=== PATIENT | male | born 1980 | race Two or more races ===

== ENCOUNTER 2020-09-24 05:23 | Inpatient (IN) | payer MEDICAID, OTHER ==
[~2020-09-24] VITALS: Ht 188 cm; Wt 112.7 kg
[2020-09-24] MEDS ORDERED: META28.32 PO (06:04)
[2020-09-24] MEDS ORDERED: MAALOX 30 ML SUSP *UDC PO PRN (06:40)
[2020-09-24] MEDS ORDERED: ACETAMINOPHEN TAB 650MG DOSE (2X325MG) PO PRN (06:40)
[2020-09-24 08:03] VITALS: BP 139/85
[2020-09-24] MEDS ORDERED: LORazepam 2 MG TAB PO PRN (13:05)
[2020-09-24] MEDS: THIAMINE 100 MG TAB PO SCH ×2 (13:54→20:39)
[2020-09-24] MEDS: MULTIVITAMINS/MINERALS THERAP 1 TAB PO SCH (13:54)
[2020-09-24] MEDS: FOLIC ACID 1 MG TAB PO SCH (13:54)
[2020-09-24] MEDS: FLUoxetine 20 MG CAP PO SCH (15:33)
[2020-09-24 17:02] VITALS: BP 136/72
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
[2020-09-24] MEDS: hydrOXYzine 50 MG TAB PO PRN (17:54)
[2020-09-24 18:22] VITALS: BP 136/72
[2020-09-24] MEDS: traZODone 50 MG TAB PO PRN (20:39)
[2020-09-24] MEDS: METAMUCIL (PSYLLIUM) PACKET PO SCH (21:35)
[2020-09-24 22:00] VITALS: BP 137/88
[2020-09-25 06:28] VITALS: BP 138/90
[2020-09-25 07:58] VITALS: BP 126/88
[2020-09-25] MEDS: THIAMINE 100 MG TAB PO SCH ×2 (08:50→20:39)
[2020-09-25] MEDS: MULTIVITAMINS/MINERALS THERAP 1 TAB PO SCH (08:50)
[2020-09-25] MEDS: FLUoxetine 20 MG CAP PO SCH (08:50)
[2020-09-25] MEDS: FOLIC ACID 1 MG TAB PO SCH (08:50)
[2020-09-25] MEDS: hydrOXYzine 50 MG TAB PO PRN (08:51)
--- NOTE | 2020-09-25 09:52 | MHIPNPDOC ---
[facility] Progress Note Progress Note DATE OF SERVICE: 09/25/20 HISTORY: Patient is a 39 -year-old Single, Unemployed, Undomiciled, male, who had lacerated his left arm in a suicide attempt. . Currently his arm is bandaged. He reports unknown amount of sutures of his left arm. States he cut himself vertically yesterday about 7 PM. Patient has a long history of an undiagnosed digestive tract problem. He's had many colonoscopies, states he is not diagnosed with Crohn's or irritable bowel syndrome. His gastrointestinal doctor says, to not be stressed but this causes more stress. He reports that he is has 16 years of this issue where he has flareups in. He has an unusual odor, reports other symptoms of both diarrhea, constipation and abdominal pain. This problem alienates him from friends and family. Reports poor supports and passive aggressive behaviors from his family and friends. Patient has a history of diverticulitis and polyps PER ED REPORT: Pt was transferred to [facility] ED from [facility] following a suicide attempt. Pt was medically cleared at [facility] & transferred to [facility] for a MHE. Pt states that he cut his wrist with a knife as a suicide attempt. Pt states that he has a "digestive tract problems" that has been ongoing for about 16 years, but he is not sure what his dx is. He states that his PCP just tells him to not worry so much. Pt states that this digestive tract issue makes him smell, so he is "alienated from everyone" because he smells bad. Pt denies any Hx of suicide attempts or self- harm. He denies HI. Pt denies both AH & VH. He does not appear to be psychotic. Pt c/o depressed mood, anxiety, poor concentration, decreased energy levels, & poor sleep. Pt denies any Hx of mental health problems. He denies any Hx of admissions. He does not have OP [place]. Pt reports that he drinks a 12- pack of beer every other day. He reports daily MJ use, but has not used in about a week because he does not have access to it. His tox screen was positive for cannabis. Pt states that he was living alone in [place], [place] until about a week ago when he came to the area to live in the [facility]. Pt states that he was having a hard time functioning in the [facility]. He states that he has family in the area but he does not want them to know that he is here because "they are passive-aggressive about my illness." Pt provides only minimal answers to questions & is guarded. VITAL SIGNS: See below. NEW TEST RESULTS: see below CURRENT MEDICATIONS: See below. MENTAL STATUS EXAMINATION: Patient is a 39 -year-old Single, Unemployed, Undomiciled, male, who had lacerated his left arm in a suicide attempt. . Currently his arm is bandaged. He reports unknown amount of sutures of his left arm. Speech: Is fluid, conversant, normal rate, tone and volume Language skills are intact Thought processes including: linear and goal oriented Thought content: reports continued depression and anxiety. Denies current suicidal/homicidal ideation, planning or intent. But suicidality has been fleeting for many years Abstract reasoning, and computation: fair Description of associations: denies, none observed Description of abnormal or psychotic thoughts: denies, none observed. Judgment: fair Insight: fair Orientation: alert and oriented to person, place, time and situation Recent and remote memory: intact Attention span and concentration: good Language: expansive Fund of knowledge: average Mood: Depressed Mood Affect: Flat/Anxious DIAGNOSES: Major Depressive Single Episode, Severe Status Post Suicide Attempt by Laceration Generalized Anxiety Disorder Rule out Bipolar I Disorder Alcohol Use Disorder Cannabis Use Disorder ASSESSMENT: Patient deports that he slept well with Trazodone. Does not feel that Prozac is helping, reinforced with patient that he had one dose and would need to continue this for many weeks before the full benefits can be felt. Patient reports that he is paranoid on the unit, believing that people are laughing at him, talking about him, that they don't want to around him because of his odor. Patient encouraged to keep a food journal, provider will give patient a notebook. 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 He requested a print of "[place] [email or web address]" He talked about interpersonal conflicts with his mother and sister and states that he has lost jobs because of his digestive issues. He requested a medication for his flare up. Encouraged patient to be seen by Gastrointestinal Provider. He remains depressed and very anxious and quite nervous/paranoid of people. MANAGEMENT PLAN: Continue medications, patient started Prozac 20 mg yesterday. Will start Risperdal 1 mg HS for paranoid thoughts, Probiotic ordered 1 capsule BID with meals. TIME SPENT: 40 minutes. Vital Signs Vital Signs Date Time Temp Pulse Resp B/P (MAP) Pulse Ox O2 Delivery O2 Flow Rate FiO2 09/25/20 07:58 70 126/88 09/25/20 06:28 97.6 18 98 Room Air Current Medications Current Medications Medications (Trade) Dose Ordered Sig/Brett Route PRN Reason Start Time Stop Time Status Last Admin Dose Admin Acetaminophen (Tylenol Tab) 650 mg Q6HP PRN PO HEADACHE or DISCOMFORT 09/24/20 06:40 Al Hydrox/Mg Hydrox/Simethicone (Mylanta) 30 ml Q4HP PRN PO HEARTBURN/INDIGESTION 09/24/20 06:40 Fluoxetine HCl (PROzac) 20 mg DAILY PO 09/24/20 09:00 09/25/20 08:50 Folic Acid (Folic Acid) 1 mg DAILY PO 09/24/20 09:00 09/25/20 08:50 Home Med (Med Rec Complete!) ASDIRECTED XX 09/24/20 06:05 09/24/20 06:15 DC Hydroxyzine HCl (Atarax) 50 mg Q6HP PRN PO anxiety/agitation 09/24/20 17:50 09/25/20 08:51 Lactobacillus Acidophilus (Bacid) 1 ea BIDWM PO 09/25/20 18:00 UNV Lorazepam (Ativan) 2 mg ASDIRECTED PRN PO SEE PROTOCOL 09/24/20 13:05 Magnesium Hydroxide (Milk Of Magnesia) 30 ml DAILYPRN PRN PO CONSTIPATION 09/24/20 06:40 Multivitamins (Theragram-M) 1 tab DAILY PO 09/24/20 09:00 09/25/20 08:50 Psyllium Hydrophilic Mucilloid (Metamucil) 1 pkt QHS PO 09/24/20 21:35 Risperidone (RisperDAL) 1 mg QHS PO 09/25/20 21:00 Thiamine HCl (Thiamine HCl) 100 mg BID PO 09/24/20 09:00 09/27/20 08:59 09/25/20 08:50 Trazodone HCl (Desyrel) 50 mg QHSP PRN PO INSOMNIA 09/24/20 06:40 09/24/20 20:39 Allergies Coded Allergies: No Known Allergies (Unverified , 09/24/20) DIEGO NARVAEZ NP Sep 25, 2020 09:52
--- NOTE | 2020-09-25 11:45 | HPEPDOC ---
[facility] Medical History & Physical Date of Admission Sep 25, 2020 Date of Service: Sep 25, 2020 History and Physical CHIEF COMPLAINT:Diarrhea for years. "stress has taken over my life." HISTORY OF PRESENT ILLNESS: 39-year-old black male with chronic diarrhea for 16 years, evaluated by art studio teacher with colonoscopy, colonic polyps, diverticulitis, no history of IBD or celiac sprue, Bacterial overgrowth or IBS admitted to the inpatient mental health unit due to severe depression. Patient denies any weight loss despite complaints of chronic diarrhea 3-4x/day "when I'm around people who gis administrator me," without nausea, vomiting, fever, chills, abdominal pain. Patient denies bright red blood per rectum, melena, black tarry stools, joint pains, mouth ulcers, recent travel, weight loss, hematemesis, coffee-ground emesis, dysphagia, odynophagia, palpitations, lightheadedness, dizziness, peptic ulcer disease, reflux, or prior history of hyperthyroidism gastrinoma VIP Lynsey or pheochromocytoma. He denies any sorbitol use or lactose intolerance, and denies drinking well water or nocturnal diarrhea symptoms. PAST MEDICAL HISTORY: Depression, Diverticulitis, colonic polyps PAST SURGICAL HISTORY: Colonoscopy in [place] SOCIAL HISTORY: One sixpack of beer every other day. Denies cigarette use but smokes and grows marijuana at home. 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 Currently unemployed FAMILY HISTORY: Mother and sister "emotional cripple" Father in 1989 with multiple sclerosis ALLERGIES: Please see below. REVIEW OF SYSTEMS: 10 point review of systems negative aside from positive findings in HPI HOME MEDICATIONS: Please see below. PHYSICAL EXAMINATION: VITAL SIGNS: See below GENERAL APPEARANCE: No distress HEENT: No pallor, icterus extra muscles intact. Moist mucous membranes. No JVD, thyromegaly or cervical lymphadenopathy CARDIOVASCULAR: S1, S2, sinus rhythm LUNGS: Clear to auscultation wheezing or rales. ABDOMEN: Soft nontender nondistended positive bowel sounds. No rebound or guarding EXTREMITIES: No cyanosis, clubbing, pitting edema. LABORATORY DATA: See below. MICROBIOLOGY: Please see below. ASSESSMENT: 39-year-old black male with chronic diarrhea for 16 years, evaluated by art studio teacher with colonoscopy, colonic polyps, diverticulitis, no history of IBD or celiac sprue, Bacterial overgrowth or IBS admitted to the inpatient mental health unit due to severe depression. Patient denies any weight loss despite complaints of chronic diarrhea 3-4x/day "when I'm around people who gis administrator me," without nausea, vomiting, fever, chills, abdominal pain. Patient denies bright red blood per rectum, melena, black tarry stools, joint pains, mouth ulcers, recent travel, weight loss, hematemesis, coffee-ground emesis, dysphagia, odynophagia, palpitations, lightheadedness, dizziness, peptic ulcer disease, reflux, or prior history of hyperthyroidism gastrinoma VIP Lynsey or pheochromocytoma. He denies any sorbitol use or lactose intolerance, and denies drinking well water or nocturnal diarrhea symptoms. Depression Chronic diarrhea Plan: Patient does not exhibit any worrisome symptoms from his chronic diarrhea and does not require any further follow-up. Check for electrolyte abnormalities. Metabolic acidosis. Otherwise, he is requesting his MiraLAX to be given daily at bedtime as recommended by his [place] art studio teacher. Hospitalists will sign off. Please call [facility] at [phone] for re-consultation for any new acute issues. Vital Signs Vital Signs Date Time Temp Pulse Resp B/P (MAP) Pulse Ox O2 Delivery O2 Flow Rate FiO2 09/25/20 07:58 70 126/88 09/25/20 06:28 97.6 18 98 Room Air Home Medications Scheduled Psyllium Husk (with Sugar) (Metamucil Powder) 575 Gm Powder, 3 TBS PO QHS Allergies Coded Allergies: No Known Allergies (Unverified , 09/24/20) A-FIB/CHADSVASC A-FIB History Current/History of A-Fib/PAF?: No Current PO Anticoag Therapy: No Age/Risk Factor Scoring CHADSVASC: CHADSVASC Response (Comments) Value Age Risk Factor Age < 65 years old 0 Gender Risk Factor Male 0 Hx of CHF No 0 Hx of HTN No 0 Hx of Stroke/TIA/or VTE No 0 Hx of Diabetes No 0 Hx of Vascular Disease No 0 Total 0 Treatment Treatment ordered: NONE ESTEFANÍA SOTO MD Sep 25, 2020 11:44
[2020-09-25 16:10] VITALS: BP 135/80
[2020-09-25] MEDS: LACTOBACILLUS ACIDOPHILUS CAP (BACID) PO SCH (17:45)
[2020-09-25] MEDS: risperiDONE 1 MG TAB PO SCH (20:39)
[2020-09-25] MEDS: METAMUCIL (PSYLLIUM) PACKET PO SCH (20:39)
[2020-09-26 07:31] VITALS: BP 146/86
[2020-09-26] MEDS: LACTOBACILLUS ACIDOPHILUS CAP (BACID) PO SCH ×2 (07:55→21:06)
[2020-09-26] MEDS: THIAMINE 100 MG TAB PO SCH ×2 (07:55→21:06)
[2020-09-26] MEDS: MULTIVITAMINS/MINERALS THERAP 1 TAB PO SCH (07:55)
[2020-09-26] MEDS: FLUoxetine 20 MG CAP PO SCH (07:55)
[2020-09-26] MEDS: FOLIC ACID 1 MG TAB PO SCH (07:55)
[2020-09-26] MEDS: hydrOXYzine 50 MG TAB PO PRN (08:55)
[2020-09-26] MEDS: MOM 30ML SUSPENSION UDC PO PRN (11:29)
[2020-09-26] MEDS: LORazepam 1 MG TAB PO PRN (12:48)
--- NOTE | 2020-09-26 17:38 | MHIPNPDOC ---
[facility] Progress Note Progress Note DATE OF SERVICE: 09/26/20 HISTORY: Patient is a 39 -year-old Single, Unemployed, Undomiciled, male, who had lacerated his left arm in a suicide attempt. . Currently his arm is bandaged. He reports unknown amount of sutures of his left arm. States he cut himself vertically yesterday about 7 PM. Patient has a long history of an undiagnosed digestive tract problem. He's had many colonoscopies, states he is not diagnosed with Crohn's or irritable bowel syndrome. His gastrointestinal doctor says, to not be stressed but this causes more stress. He reports that he is has 16 years of this issue where he has flareups in. He has an unusual odor, reports other symptoms of both diarrhea, constipation and abdominal pain. This problem alienates him from friends and family. Reports poor supports and passive aggressive behaviors from his family and friends. Patient has a history of diverticulitis and polyps PER ED REPORT: Pt was transferred to [facility] ED from [facility] following a suicide attempt. Pt was medically cleared at [facility] & transferred to [facility] for a MHE. Pt states that he cut his wrist with a knife as a suicide attempt. Pt states that he has a "digestive tract problems" that has been ongoing for about 16 years, but he is not sure what his dx is. He states that his PCP just tells him to not worry so much. Pt states that this digestive tract issue makes him smell, so he is "alienated from everyone" because he smells bad. Pt denies any Hx of suicide attempts or self- harm. He denies HI. Pt denies both AH & VH. He does not appear to be psychotic. Pt c/o depressed mood, anxiety, poor concentration, decreased energy levels, & poor sleep. Pt denies any Hx of mental health problems. He denies any Hx of admissions. He does not have OP [place]. Pt reports that he drinks a 12- pack of beer every other day. He reports daily MJ use, but has not used in about a week because he does not have access to it. His tox screen was positive for cannabis. Pt states that he was living alone in [place], [place] until about a week ago when he came to the area to live in the [facility]. Pt states that he was having a hard time functioning in the [facility]. He states that he has family in the area but he does not want them to know that he is here because "they are passive-aggressive about my illness." Pt provides only minimal answers to questions & is guarded. VITAL SIGNS: See below. NEW TEST RESULTS: see below CURRENT MEDICATIONS: See below. MENTAL STATUS EXAMINATION: Patient is a 39 -year-old Single, Unemployed, Undomiciled, male, who had lacerated his left arm in a suicide attempt. . Currently his arm is bandaged. He reports unknown amount of sutures of his left arm. Speech: Is not spontaneous, needs prompting, normal tone and volume Language skills are intact Thought processes including: linear but not necessarily coherent Thought content: Denies SI/HI, but reports ongoing SI and depression that he blames on "problems with his GI tract". He has paranoid ideation Abstract reasoning, and computation: fair Description of associations: denies, none observed Description of abnormal or psychotic thoughts: denies, none observed. Judgment: poor Insight: poor Orientation: alert and oriented to person, place, time and situation Recent and remote memory: fair Attention span and concentration: fair Language: adequate Fund of knowledge: average Mood: Depressed/guarded --- Mood Affect: congruent with mood, irritable DIAGNOSES: Major Depressive Single Episode, Severe Status Post Suicide Attempt by Laceration Generalized Anxiety Disorder Rule out Bipolar I Disorder Alcohol Use Disorder Cannabis Use Disorder ASSESSMENT: Patient looks depressed and after I asked him what was the reason of him being admitted, he told me he wanted to be discharged, because nobody likes him here. He then told me that he has chronic problems with his GI tract and that people don't want to be around him because he smells. he said he was upset at staff and patient for them laughing at him. he tells me he doesn't want to be here, just wants to leav and I explained i can't discharge him now, that I fel he needs to continue his hospitalization and that I suggest him address how he feels during weekdays because I do not discharge patients over the weekends, unless I feel people are very stable. He continues pressing to be discharged and at that moment, I could feel he was escalating, so, I asked him to go to his room and that I would talk to him later. he told me not to even ask him to come to talk to me tomorrow. He was upst but he was upset also when he came to talk to me. I agree with his current provider, ne will benefit from taking Risperdal, he is paranoid. He is also depressed, he will benefit from Fluoxetine that he i already taking. MANAGEMENT PLAN: Continue current treatment plan, will re assess tomorrow. TIME SPENT: 15 minutes. Vital Signs Vital Signs Date Time Temp Pulse Resp B/P (MAP) Pulse Ox O2 Delivery O2 Flow Rate FiO2 09/26/20 07:31 98.2 54 14 146/86 (106) 09/25/20 16:10 98 Room Air Current Medications Current Medications Medications (Trade) Dose Ordered Sig/Brett Route PRN Reason Start Time Stop Time Status Last Admin Dose Admin Acetaminophen (Tylenol Tab) 650 mg Q6HP PRN PO HEADACHE or DISCOMFORT 09/24/20 06:40 Al Hydrox/Mg Hydrox/Simethicone (Mylanta) 30 ml Q4HP PRN PO HEARTBURN/INDIGESTION 09/24/20 06:40 Fluoxetine HCl (PROzac) 20 mg DAILY PO 09/24/20 09:00 09/26/20 07:55 Folic Acid (Folic Acid) 1 mg DAILY PO 09/24/20 09:00 09/26/20 07:55 Home Med (Med Rec Complete!) ASDIRECTED XX 09/24/20 06:05 09/24/20 06:15 DC Hydroxyzine HCl (Atarax) 50 mg Q6HP PRN PO anxiety/agitation 09/24/20 17:50 09/26/20 08:55 Lactobacillus Acidophilus (Bacid) 1 ea BIDWM PO 09/25/20 18:00 09/26/20 07:55 Lorazepam (Ativan) 1 mg TIDP PRN PO ANXIETY 09/26/20 11:15 09/26/20 12:48 Lorazepam (Ativan) 2 mg ASDIRECTED PRN PO SEE PROTOCOL 09/24/20 13:05 Cancel Magnesium Hydroxide (Milk Of Magnesia) 30 ml DAILYPRN PRN PO CONSTIPATION 09/24/20 06:40 09/26/20 11:29 Multivitamins (Theragram-M) 1 tab DAILY PO 09/24/20 09:00 09/26/20 07:55 Psyllium Hydrophilic Mucilloid (Metamucil) 1 pkt QHS PO 09/24/20 21:35 09/25/20 20:39 Risperidone (RisperDAL) 1 mg QHS PO 09/25/20 21:00 09/25/20 20:39 Thiamine HCl (Thiamine HCl) 100 mg BID PO 09/24/20 09:00 09/27/20 08:59 09/26/20 07:55 Trazodone HCl (Desyrel) 50 mg QHSP PRN PO INSOMNIA 09/24/20 06:40 09/24/20 20:39 Allergies Coded Allergies: No Known Allergies (Unverified , 09/24/20) EMILY STEWART MD Sep 26, 2020 15:23
[2020-09-26] MEDS: risperiDONE 1 MG TAB PO SCH (21:06)
[2020-09-26] MEDS: traZODone 50 MG TAB PO PRN (21:06)
[2020-09-26] MEDS: METAMUCIL (PSYLLIUM) PACKET PO SCH (21:06)
--- NOTE | 2020-09-26 21:08 | ECGEPIP ---
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
[2020-09-27] MEDS: LACTOBACILLUS ACIDOPHILUS CAP (BACID) PO SCH ×2 (07:53→17:30)
[2020-09-27] MEDS: FLUoxetine 20 MG CAP PO SCH (07:53)
[2020-09-27] MEDS: FOLIC ACID 1 MG TAB PO SCH (07:53)
[2020-09-27] MEDS: MULTIVITAMINS/MINERALS THERAP 1 TAB PO SCH (07:53)
[2020-09-27] MEDS: LORazepam 1 MG TAB PO PRN ×2 (07:53→17:35)
[2020-09-27] MEDS: hydrOXYzine 50 MG TAB PO PRN ×2 (12:50→21:25)
--- NOTE | 2020-09-27 16:04 | MHIPNPDOC ---
[facility] Progress Note Progress Note DATE OF SERVICE: 09/27/20 HISTORY: Patient is a 39 -year-old Single, Unemployed, Undomiciled, male, who had lacerated his left arm in a suicide attempt. . Currently his arm is bandaged. He reports unknown amount of sutures of his left arm. States he cut himself vertically yesterday about 7 PM. Patient has a long history of an undiagnosed digestive tract problem. He's had many colonoscopies, states he is not diagnosed with Crohn's or irritable bowel syndrome. His gastrointestinal doctor says, to not be stressed but this causes more stress. He reports that he is has 16 years of this issue where he has flareups in. He has an unusual odor, reports other symptoms of both diarrhea, constipation and abdominal pain. This problem alienates him from friends and family. Reports poor supports and passive aggressive behaviors from his family and friends. Patient has a history of diverticulitis and polyps PER ED REPORT: Pt was transferred to [facility] ED from [facility] following a suicide attempt. Pt was medically cleared at [facility] & transferred to [facility] for a MHE. Pt states that he cut his wrist with a knife as a suicide attempt. Pt states that he has a "digestive tract problems" that has been ongoing for about 16 years, but he is not sure what his dx is. He states that his PCP just tells him to not worry so much. Pt states that this digestive tract issue makes him smell, so he is "alienated from everyone" because he smells bad. Pt denies any Hx of suicide attempts or self- harm. He denies HI. Pt denies both AH & VH. He does not appear to be psychotic. Pt c/o depressed mood, anxiety, poor concentration, decreased energy levels, & poor sleep. Pt denies any Hx of mental health problems. He denies any Hx of admissions. He does not have OP [place]. Pt reports that he drinks a 12- pack of beer every other day. He reports daily MJ use, but has not used in about a week because he does not have access to it. His tox screen was positive for cannabis. Pt states that he was living alone in [place], [place] until about a week ago when he came to the area to live in the [facility]. Pt states that he was having a hard time functioning in the [facility]. He states that he has family in the area but he does not want them to know that he is here because "they are passive-aggressive about my illness." Pt provides only minimal answers to questions & is guarded. VITAL SIGNS: See below. NEW TEST RESULTS: see below CURRENT MEDICATIONS: See below. MENTAL STATUS EXAMINATION: Patient is a 39 -year-old Single, Unemployed, Undomiciled, male, who had lacerated his left arm in a suicide attempt. Currently his arm is bandaged. He reports unknown amount of sutures of his left arm. Speech: Is not spontaneous, needs prompting, normal tone and volume Language skills are intact Thought processes including: linear but not necessarily coherent Thought content: Denies SI/HI, but reports ongoing SI and depression that he blames on "problems with his GI tract". He has paranoid ideation Abstract reasoning, and computation: fair Description of associations: denies, none observed Description of abnormal or psychotic thoughts: denies, none observed. Judgment: improving Insight: improving Orientation: alert and oriented to person, place, time and situation Recent and remote memory: fair Attention span and concentration: fair Language: adequate Fund of knowledge: average Mood: anxious ---- Affect: congruent with mood DIAGNOSES: Major Depressive Single Episode, Severe Status Post Suicide Attempt by Laceration Generalized Anxiety Disorder Rule out Bipolar I Disorder Alcohol Use Disorder Cannabis Use Disorder ASSESSMENT: He is on a probiotic two days ago, he is on Metamucil but he has been taking it for about 5 years. He says he has been to [facility], they have removed polyps. He says his GI problems get worse when he is stressed. He says smoking marijuana has helped him. He says he was able to sleep last night, because he had medications for sleep. He says he wouldn't be able to do it because he uses alcohol and MJ to induce sleep. He says he can still smell bad odor, sometimes he doesn't smell it but he says he knows other people can smell it. Hhe says he still feels anxious. MANAGEMENT PLAN: Continue current treatment plan, will re assess tomorrow. TIME SPENT: 15 minutes. Vital Signs Vital Signs Date Time Temp Pulse Resp B/P (MAP) Pulse Ox O2 Delivery O2 Flow Rate FiO2 09/26/20 07:31 98.2 54 14 146/86 (106) 09/25/20 16:10 98 Room Air Current Medications Current Medications Medications (Trade) Dose Ordered Sig/Brett Route PRN Reason Start Time Stop Time Status Last Admin Dose Admin Acetaminophen (Tylenol Tab) 650 mg Q6HP PRN PO HEADACHE or DISCOMFORT 09/24/20 06:40 Al Hydrox/Mg Hydrox/Simethicone (Mylanta) 30 ml Q4HP PRN PO HEARTBURN/INDIGESTION 09/24/20 06:40 Fluoxetine HCl (PROzac) 20 mg DAILY PO 09/24/20 09:00 09/27/20 07:53 Folic Acid (Folic Acid) 1 mg DAILY PO 09/24/20 09:00 09/27/20 07:53 Home Med (Med Rec Complete!) ASDIRECTED XX 09/24/20 06:05 09/24/20 06:15 DC Hydroxyzine HCl (Atarax) 50 mg Q6HP PRN PO anxiety/agitation 09/24/20 17:50 09/27/20 12:50 Lactobacillus Acidophilus (Bacid) 1 ea BIDWM PO 09/25/20 18:00 09/27/20 07:53 Lorazepam (Ativan) 1 mg TIDP PRN PO ANXIETY 09/26/20 11:15 09/27/20 07:53 Lorazepam (Ativan) 2 mg ASDIRECTED PRN PO SEE PROTOCOL 09/24/20 13:05 Cancel Magnesium Hydroxide (Milk Of Magnesia) 30 ml DAILYPRN PRN PO CONSTIPATION 09/24/20 06:40 09/26/20 11:29 Multivitamins (Theragram-M) 1 tab DAILY PO 09/24/20 09:00 09/27/20 07:53 Psyllium Hydrophilic Mucilloid (Metamucil) 1 pkt QHS PO 09/24/20 21:35 09/26/20 21:06 Risperidone (RisperDAL) 1 mg QHS PO 09/25/20 21:00 09/26/20 21:06 Thiamine HCl (Thiamine HCl) 100 mg BID PO 09/24/20 09:00 09/27/20 08:59 DC 09/26/20 21:06 Trazodone HCl (Desyrel) 50 mg QHSP PRN PO INSOMNIA 09/24/20 06:40 09/26/20 21:06 Allergies Coded Allergies: No Known Allergies (Unverified , 09/24/20) EMILY STEWART MD Sep 27, 2020 16:04
[2020-09-27 17:01] VITALS: BP 145/90
[2020-09-27] MEDS: traZODone 50 MG TAB PO PRN (21:24)
[2020-09-27] MEDS: risperiDONE 1 MG TAB PO SCH (21:25)
[2020-09-27] MEDS: METAMUCIL (PSYLLIUM) PACKET PO SCH (21:25)
[2020-09-28] MEDS: hydrOXYzine 50 MG TAB PO PRN (08:34)
[2020-09-28] MEDS: LACTOBACILLUS ACIDOPHILUS CAP (BACID) PO SCH ×2 (08:34→17:54)
[2020-09-28] MEDS: FOLIC ACID 1 MG TAB PO SCH (08:34)
[2020-09-28] MEDS: FLUoxetine 20 MG CAP PO SCH (08:34)
[2020-09-28] MEDS: MULTIVITAMINS/MINERALS THERAP 1 TAB PO SCH (08:34)
[2020-09-28] MEDS ORDERED: OLANZapine ORAL DISINTEGRATING TAB 5MG PO STA (13:33)
--- NOTE | 2020-09-28 14:31 | MHIPNPDOC ---
[facility] Progress Note Progress Note DATE OF SERVICE: 09/28/20 HISTORY: Patient is a 39 -year-old Single, Unemployed, Undomiciled, male, who had lacerated his left arm in a suicide attempt. . Currently his arm is bandaged. He reports unknown amount of sutures of his left arm. States he cut himself vertically yesterday about 7 PM. Patient has a long history of an undiagnosed digestive tract problem. He's had many colonoscopies, states he is not diagnosed with Crohn's or irritable bowel syndrome. His gastrointestinal doctor says, to not be stressed but this causes more stress. He reports that he is has 16 years of this issue where he has flareups in. He has an unusual odor, reports other symptoms of both diarrhea, constipation and abdominal pain. This problem alienates him from friends and family. Reports poor supports and passive aggressive behaviors from his family and friends. Patient has a history of diverticulitis and polyps PER ED REPORT: Pt was transferred to [facility] ED from [facility] following a suicide attempt. Pt was medically cleared at [facility] & transferred to [facility] for a MHE. Pt states that he cut his wrist with a knife as a suicide attempt. Pt states that he has a "digestive tract problems" that has been ongoing for about 16 years, but he is not sure what his dx is. He states that his PCP just tells him to not worry so much. Pt states that this digestive tract issue makes him smell, so he is "alienated from everyone" because he smells bad. Pt denies any Hx of suicide attempts or self- harm. He denies HI. Pt denies both AH & VH. He does not appear to be psychotic. Pt c/o depressed mood, anxiety, poor concentration, decreased energy levels, & poor sleep. Pt denies any Hx of mental health problems. He denies any Hx of admissions. He does not have OP [place]. Pt reports that he drinks a 12- pack of beer every other day. He reports daily MJ use, but has not used in about a week because he does not have access to it. His tox screen was positive for cannabis. Pt states that he was living alone in [place], [place] until about a week ago when he came to the area to live in the [facility]. Pt states that he was having a hard time functioning in the [facility]. He states that he has family in the area but he does not want them to know that he is here because "they are passive-aggressive about my illness." Pt provides only minimal answers to questions & is guarded. VITAL SIGNS: See below. NEW TEST RESULTS: see below CURRENT MEDICATIONS: See below. MENTAL STATUS EXAMINATION: Patient is a 39 -year-old Single, Unemployed, Undomiciled, male, who had lacerated his left arm in a suicide attempt. Currently his arm is bandaged. He reports unknown amount of sutures of his left arm. Speech: Is not spontaneous, needs prompting, normal tone and volume Language skills are intact Thought processes including: linear and goal oriented Thought content: Denies SI/HI, denies depression. He has paranoid ideation Abstract reasoning, and computation: fair Description of associations: denies, none observed Description of abnormal or psychotic thoughts: denies, none observed. Judgment: fair Insight: fair Orientation: alert and oriented to person, place, time and situation Recent and remote memory: fair Attention span and concentration: fair Language: adequate Fund of knowledge: average Mood: Denies depression Mood Affect: Irritable, anxious, guarded DIAGNOSES: Major Depressive Single Episode, Severe Status Post Suicide Attempt by Laceration Generalized Anxiety Disorder Rule out Bipolar I Disorder Alcohol Use Disorder Cannabis Use Disorder ASSESSMENT: Patient reports that he has no depression. He complains of anxiety. States that on Monday he had an encounter with a staff member who made an improper comment about him. Patient has been quite paranoid of other staff and peers and may have olfactory hallucinations because he believes that he is odorous and adamant that people are talking about him behind his back and that they are laughing at him. Patient states that he does not think Atarax. Ativan or Prozac works. Risperdal increased to 3 mg for his increasing paranoid thoughts. Patient was quite irritable in the interview. One time order for Zyprexa Zydis ordered. Reinforced that Prozac needs to be continued for 3-6 weeks for full effectiveness, he agreed to take this at . MANAGEMENT PLAN: Continue current treatment plan, will re assess tomorrow. TIME SPENT: 25 minutes. Vital Signs Vital Signs Date Time Temp Pulse Resp B/P (MAP) Pulse Ox O2 Delivery O2 Flow Rate FiO2 09/27/20 17:01 97.0 100 18 145/90 (108) 09/25/20 16:10 98 Room Air Current Medications Current Medications Medications (Trade) Dose Ordered Sig/Brett Route PRN Reason Start Time Stop Time Status Last Admin Dose Admin Acetaminophen (Tylenol Tab) 650 mg Q6HP PRN PO HEADACHE or DISCOMFORT 09/24/20 06:40 Al Hydrox/Mg Hydrox/Simethicone (Mylanta) 30 ml Q4HP PRN PO HEARTBURN/INDIGESTION 09/24/20 06:40 Fluoxetine HCl (PROzac) 20 mg DAILY PO 09/24/20 09:00 09/28/20 08:34 Folic Acid (Folic Acid) 1 mg DAILY PO 09/24/20 09:00 09/28/20 08:34 Home Med (Med Rec Complete!) ASDIRECTED XX 09/24/20 06:05 09/24/20 06:15 DC Hydroxyzine HCl (Atarax) 50 mg Q6HP PRN PO anxiety/agitation 09/24/20 17:50 09/28/20 08:34 Lactobacillus Acidophilus (Bacid) 1 ea BIDWM PO 09/25/20 18:00 09/28/20 08:34 Lorazepam (Ativan) 1 mg TIDP PRN PO ANXIETY 09/26/20 11:15 09/27/20 17:35 Lorazepam (Ativan) 2 mg ASDIRECTED PRN PO SEE PROTOCOL 09/24/20 13:05 Cancel Magnesium Hydroxide (Milk Of Magnesia) 30 ml DAILYPRN PRN PO CONSTIPATION 09/24/20 06:40 09/26/20 11:29 Multivitamins (Theragram-M) 1 tab DAILY PO 09/24/20 09:00 09/28/20 08:34 Psyllium Hydrophilic Mucilloid (Metamucil) 1 pkt QHS PO 09/24/20 21:35 09/27/20 21:25 Risperidone (RisperDAL) 1 mg QHS PO 09/25/20 21:00 09/27/20 21:25 Thiamine HCl (Thiamine HCl) 100 mg BID PO 09/24/20 09:00 09/27/20 08:59 DC 09/26/20 21:06 Trazodone HCl (Desyrel) 50 mg QHSP PRN PO INSOMNIA 09/24/20 06:40 09/27/20 21:24 Allergies Coded Allergies: No Known Allergies (Unverified , 4/15/21) DIEGO NARVAEZ NP Sep 28, 2020 13:28
[2020-09-28 18:02] VITALS: BP 138/78
[2020-09-28] MEDS: risperiDONE 3 MG TAB PO SCH (20:51)
[2020-09-28] MEDS: traZODone 50 MG TAB PO PRN (20:51)
[2020-09-28] MEDS: METAMUCIL (PSYLLIUM) PACKET PO SCH (20:52)
[2020-09-29 06:52] VITALS: BP 140/73
[2020-09-29] MEDS: LACTOBACILLUS ACIDOPHILUS CAP (BACID) PO SCH ×2 (08:52→17:31)
[2020-09-29] MEDS: FOLIC ACID 1 MG TAB PO SCH (09:30)
[2020-09-29] MEDS: MULTIVITAMINS/MINERALS THERAP 1 TAB PO SCH (09:30)
[2020-09-29] MEDS: hydrOXYzine 50 MG TAB PO PRN ×2 (13:16→19:23)
--- NOTE | 2020-09-29 17:24 | MHIPNPDOC ---
[facility] Progress Note Progress Note DATE OF SERVICE: 09/29/20 HISTORY: Patient is a 39 -year-old Single, Unemployed, Undomiciled, male, who had lacerated his left arm in a suicide attempt. . Currently his arm is bandaged. He reports unknown amount of sutures of his left arm. States he cut himself vertically yesterday about 7 PM. Patient has a long history of an undiagnosed digestive tract problem. He's had many colonoscopies, states he is not diagnosed with Crohn's or irritable bowel syndrome. His gastrointestinal doctor says, to not be stressed but this causes more stress. He reports that he is has 16 years of this issue where he has flareups in. He has an unusual odor, reports other symptoms of both diarrhea, constipation and abdominal pain. This problem alienates him from friends and family. Reports poor supports and passive aggressive behaviors from his family and friends. Patient has a history of diverticulitis and polyps PER ED REPORT: Pt was transferred to [facility] ED from [facility] following a suicide attempt. Pt was medically cleared at [facility] & transferred to [facility] for a MHE. Pt states that he cut his wrist with a knife as a suicide attempt. Pt states that he has a "digestive tract problems" that has been ongoing for about 16 years, but he is not sure what his dx is. He states that his PCP just tells him to not worry so much. Pt states that this digestive tract issue makes him smell, so he is "alienated from everyone" because he smells bad. Pt denies any Hx of suicide attempts or self- harm. He denies HI. Pt denies both AH & VH. He does not appear to be psychotic. Pt c/o depressed mood, anxiety, poor concentration, decreased energy levels, & poor sleep. Pt denies any Hx of mental health problems. He denies any Hx of admissions. He does not have OP [place]. Pt reports that he drinks a 12- pack of beer every other day. He reports daily MJ use, but has not used in about a week because he does not have access to it. His tox screen was positive for cannabis. Pt states that he was living alone in [place], [place] until about a week ago when he came to the area to live in the [facility]. Pt states that he was having a hard time functioning in the [facility]. He states that he has family in the area but he does not want them to know that he is here because "they are passive-aggressive about my illness." Pt provides only minimal answers to questions & is guarded. VITAL SIGNS: See below. NEW TEST RESULTS: see below CURRENT MEDICATIONS: See below. MENTAL STATUS EXAMINATION: Patient is a 39 -year-old Single, Unemployed, Undomiciled, male, who had lacerated his left arm in a suicide attempt. Currently his arm is bandaged. He reports unknown amount of sutures of his left arm. Speech: Is not spontaneous, needs prompting, normal tone and volume Language skills are intact Thought processes including: linear and goal oriented Thought content: Denies SI/HI, denies depression. He has paranoid ideation Abstract reasoning, and computation: fair Description of associations: denies, none observed Description of abnormal or psychotic thoughts: denies, none observed. Judgment: fair Insight: fair Orientation: alert and oriented to person, place, time and situation Recent and remote memory: fair Attention span and concentration: fair Language: adequate Fund of knowledge: average Mood: Denies depression Mood Affect: Irritable, anxious, guarded DIAGNOSES: Major Depressive Single Episode, Severe Status Post Suicide Attempt by Laceration Generalized Anxiety Disorder Rule out Bipolar I Disorder Alcohol Use Disorder Cannabis Use Disorder ASSESSMENT: Patient reporting increased anxiety. Has theories about political correctness, methane gas pollution and the end of the world theories. During the interview he is euthymic and smiles on approach but patient's paranoia has increased. He reports that more people are talking about him. When reviewing these thoughts he states that patients' are talking about him, staff are talking behind his back and many times in the interview he is very sensitive to the provider's glances or movements to i.e. rub my nose. Patient stopped his dialogue and stated "What!? Do I have something on my nose? Why are scratching your nose?" Explained to patient that my nose was itchy from the mask and patient accepted this. Patient reported that his anxiety is extremely high. He sought out this provider multiple times during the day to talk about his anxiety. Will be talking to patient about discharge. Patient was given one dose of Zyprexa 5 mg for his severe anxiety yesterday and he stated that his didn't work. He is requesting Alprazolam for his anxiety, reports that he does not have a Rx for this and was never Rx'd it in the past but was given some and he states that it works. Given that patient does not have a provider that already prescribes it and may not have a provider that will continue it, this provider is not inclined to start this. We will continue to collaborate on an agreed non-controlled anxiolytic for his discharge. MANAGEMENT PLAN: Continue current treatment plan, will re assess tomorrow. TIME SPENT: 25 minutes. Vital Signs Vital Signs Date Time Temp Pulse Resp B/P (MAP) Pulse Ox O2 Delivery O2 Flow Rate FiO2 09/29/20 06:52 99.2 59 20 140/73 (95) 100 Room Air Current Medications Current Medications Medications (Trade) Dose Ordered Sig/Brett Route PRN Reason Start Time Stop Time Status Last Admin Dose Admin Acetaminophen (Tylenol Tab) 650 mg Q6HP PRN PO HEADACHE or DISCOMFORT 09/24/20 06:40 Al Hydrox/Mg Hydrox/Simethicone (Mylanta) 30 ml Q4HP PRN PO HEARTBURN/INDIGESTION 09/24/20 06:40 Fluoxetine HCl (PROzac) 20 mg DAILY PO 09/24/20 09:00 09/28/20 13:31 DC 09/28/20 08:34 Fluoxetine HCl (PROzac) 20 mg QHS PO 09/29/20 21:00 Folic Acid (Folic Acid) 1 mg DAILY PO 09/24/20 09:00 09/29/20 09:30 Home Med (Med Rec Complete!) ASDIRECTED XX 09/24/20 06:05 09/24/20 06:15 DC Hydroxyzine HCl (Atarax) 50 mg Q6HP PRN PO anxiety/agitation 09/24/20 17:50 09/28/20 13:36 DC 09/28/20 08:34 Hydroxyzine HCl (Atarax) 100 mg Q6HP PRN PO ANXIETY 09/29/20 12:45 Lactobacillus Acidophilus (Bacid) 1 ea BIDWM PO 09/25/20 18:00 09/29/20 08:52 Lorazepam (Ativan) 1 mg TIDP PRN PO ANXIETY 09/26/20 11:15 09/28/20 13:36 DC 09/27/20 17:35 Lorazepam (Ativan) 2 mg ASDIRECTED PRN PO SEE PROTOCOL 09/24/20 13:05 Cancel Magnesium Hydroxide (Milk Of Magnesia) 30 ml DAILYPRN PRN PO CONSTIPATION 09/24/20 06:40 09/26/20 11:29 Multivitamins (Theragram-M) 1 tab DAILY PO 09/24/20 09:00 09/29/20 09:30 Olanzapine (ZyPREXA ZYDIS) 5 mg STAT STAT PO 09/28/20 13:33 09/28/20 13:36 DC 09/28/20 13:44 Psyllium Hydrophilic Mucilloid (Metamucil) 1 pkt QHS PO 09/24/20 21:35 09/29/20 12:46 DC 09/28/20 20:52 Psyllium Hydrophilic Mucilloid (Metamucil) 2 pkt DAILYPRN PRN PO CONSTIPATION 09/29/20 12:45 Risperidone (RisperDAL) 1 mg QHS PO 09/25/20 21:00 09/28/20 13:31 DC 09/27/20 21:25 Risperidone (RisperDAL) 3 mg QHS PO 09/28/20 21:00 09/28/20 20:51 Thiamine HCl (Thiamine HCl) 100 mg BID PO 09/24/20 09:00 09/27/20 08:59 DC 09/26/20 21:06 Trazodone HCl (Desyrel) 25 mg QHSP PRN PO INSOMNIA 09/29/20 12:45 Trazodone HCl (Desyrel) 50 mg QHSP PRN PO INSOMNIA 09/24/20 06:40 09/29/20 12:46 DC 09/28/20 20:51 Allergies Coded Allergies: No Known Allergies (Unverified , 09/24/20) DIEGO NARVAEZ TEST SKEIN WINDER Sep 29, 2020 13:06
[2020-09-29 18:00] VITALS: BP 139/85
[2020-09-29] MEDS: traZODone 25MG PER 1/2 TABLET PO PRN (20:38)
[2020-09-29] MEDS: risperiDONE 3 MG TAB PO SCH (20:38)
[2020-09-29] MEDS: METAMUCIL (PSYLLIUM) PACKET PO PRN (20:38)
[2020-09-29] MEDS ORDERED: FLUoxetine 20 MG CAP PO SCH (21:00)
[2020-09-30] MEDS: hydrOXYzine 50 MG TAB PO PRN ×2 (05:38→19:40)
[2020-09-30 06:45] VITALS: BP 152/94
[2020-09-30] MEDS: MULTIVITAMINS/MINERALS THERAP 1 TAB PO SCH (08:02)
[2020-09-30] MEDS: LACTOBACILLUS ACIDOPHILUS CAP (BACID) PO SCH ×2 (08:02→17:51)
[2020-09-30] MEDS: FOLIC ACID 1 MG TAB PO SCH (08:02)
[2020-09-30] MEDS ORDERED: LORazepam 1 MG TAB PO STA (09:32)
[2020-09-30] MEDS ORDERED: FLUoxetine 20 MG CAP PO ONE (12:25)
--- NOTE | 2020-09-30 13:43 | MHIPNPDOC ---
[facility] Progress Note Progress Note DATE OF SERVICE: 09/30/20 HISTORY: Patient is a 39 -year-old Single, Unemployed, Undomiciled, male, who had lacerated his left arm in a suicide attempt. . Currently his arm is bandaged. He reports unknown amount of sutures of his left arm. States he cut himself vertically yesterday about 7 PM. Patient has a long history of an undiagnosed digestive tract problem. He's had many colonoscopies, states he is not diagnosed with Crohn's or irritable bowel syndrome. His gastrointestinal doctor says, to not be stressed but this causes more stress. He reports that he is has 16 years of this issue where he has flareups in. He has an unusual odor, reports other symptoms of both diarrhea, constipation and abdominal pain. This problem alienates him from friends and family. Reports poor supports and passive aggressive behaviors from his family and friends. Patient has a history of diverticulitis and polyps PER ED REPORT: Pt was transferred to [facility] ED from [facility] following a suicide attempt. Pt was medically cleared at [facility] & transferred to [facility] for a MHE. Pt states that he cut his wrist with a knife as a suicide attempt. Pt states that he has a "digestive tract problems" that has been ongoing for about 16 years, but he is not sure what his dx is. He states that his PCP just tells him to not worry so much. Pt states that this digestive tract issue makes him smell, so he is "alienated from everyone" because he smells bad. Pt denies any Hx of suicide attempts or self- harm. He denies HI. Pt denies both AH & VH. He does not appear to be psychotic. Pt c/o depressed mood, anxiety, poor concentration, decreased energy levels, & poor sleep. Pt denies any Hx of mental health problems. He denies any Hx of admissions. He does not have OP [place]. Pt reports that he drinks a 12- pack of beer every other day. He reports daily MJ use, but has not used in about a week because he does not have access to it. His tox screen was positive for cannabis. Pt states that he was living alone in [place], [place] until about a week ago when he came to the area to live in the [facility]. Pt states that he was having a hard time functioning in the [facility]. He states that he has family in the area but he does not want them to know that he is here because "they are passive-aggressive about my illness." Pt provides only minimal answers to questions & is guarded. VITAL SIGNS: See below. NEW TEST RESULTS: see below CURRENT MEDICATIONS: See below. MENTAL STATUS EXAMINATION: Patient is a 39 -year-old Single, Unemployed, Undomiciled, male, who had lacerated his left arm in a suicide attempt. Currently his arm is bandaged. He reports unknown amount of sutures of his left arm. Speech: Is not spontaneous, needs prompting, normal tone and volume Language skills are intact Thought processes including: linear and goal oriented Thought content: Denies SI/HI,reports depression and increased anxiety. He has paranoid ideations Abstract reasoning, and computation: fair Description of associations: denies, none observed Description of abnormal or psychotic thoughts: denies, none observed. Judgment: fair Insight: fair Orientation: alert and oriented to person, place, time and situation Recent and remote memory: fair Attention span and concentration: fair Language: adequate Fund of knowledge: average Mood:Reports depression and anxiety Mood Affect: Irritable, anxious DIAGNOSES: Major Depressive Single Episode, Severe Status Post Suicide Attempt by Laceration Generalized Anxiety Disorder Rule out Bipolar I Disorder Alcohol Use Disorder Cannabis Use Disorder ASSESSMENT: Patient attempted to meet with provider multiple times. Several times during this hospitalization patient has wanted med changes from AM to PM, did not want anxiolytics reporting that none were working. He stated today that he would like Ativan reinstated to his medication reconciliation. I reinforced with the patient that he would not be prescribed this at his discharge. He was reporting that his paranoia has increased while he has been hospitalized. He is observed to be more paranoid about his peers and about the staff. He states that a patient expelled flatus while he was in the hallway, "that marry was being just very passive aggressive to me." Patient continues to ruminate about how people are trying to say something about him behind his back, talking to others about him or laughing at him. He is very irritable when he is ruminating about peers. Patient was living in the [facility] and stated that he may consider this upon discharge, given that it is snowing today we are working with the patient to be open to housing. He was agreeable to signing paperwork today. Planning to discharge patient Monday10/05/20. @7305- Patient comes into the office asking for his lorazepam to be switched to every 6hrs. Reinforced with patient that the current lorazepam frequency will stay the same. Patient has med seeking behaviors. MANAGEMENT PLAN: Continue current treatment plan, Ativan 1 mg [id number] PRN for anxiety. Risperdal 3 mg in AM for continued Paranoia. Patient requesting his Prozac to go back to AM. TIME SPENT: 25 minutes. Vital Signs Vital Signs Date Time Temp Pulse Resp B/P (MAP) Pulse Ox O2 Delivery O2 Flow Rate FiO2 09/30/20 06:45 96.6 88 20 152/94 (113) 96 Room Air Current Medications Current Medications Medications (Trade) Dose Ordered Sig/Brett Route PRN Reason Start Time Stop Time Status Last Admin Dose Admin Acetaminophen (Tylenol Tab) 650 mg Q6HP PRN PO HEADACHE or DISCOMFORT 09/24/20 06:40 Al Hydrox/Mg Hydrox/Simethicone (Mylanta) 30 ml Q4HP PRN PO HEARTBURN/INDIGESTION 09/24/20 06:40 Fluoxetine HCl (PROzac) 20 mg DAILY PO 09/24/20 09:00 09/28/20 13:31 DC 09/28/20 08:34 Fluoxetine HCl (PROzac) 20 mg QAM PO 10/01/20 09:00 Fluoxetine HCl (PROzac) 20 mg QHS PO 09/29/20 21:00 09/30/20 12:27 DC 09/29/20 20:38 Folic Acid (Folic Acid) 1 mg DAILY PO 09/24/20 09:00 09/30/20 08:02 Home Med (Med Rec Complete!) ASDIRECTED XX 09/24/20 06:05 09/24/20 06:15 DC Hydroxyzine HCl (Atarax) 50 mg Q6HP PRN PO anxiety/agitation 09/24/20 17:50 09/28/20 13:36 DC 09/28/20 08:34 Hydroxyzine HCl (Atarax) 100 mg Q6HP PRN PO ANXIETY 09/29/20 12:45 09/30/20 05:38 Lactobacillus Acidophilus (Bacid) 1 ea BIDWM PO 09/25/20 18:00 09/30/20 08:02 Lorazepam (Ativan) 1 mg Q8HP PRN PO ANXIETY 09/30/20 12:25 Lorazepam (Ativan) 1 mg STAT STAT PO 09/30/20 09:32 09/30/20 09:34 DC 09/30/20 09:56 Lorazepam (Ativan) 1 mg TIDP PRN PO ANXIETY 09/26/20 11:15 09/28/20 13:36 DC 09/27/20 17:35 Lorazepam (Ativan) 2 mg ASDIRECTED PRN PO SEE PROTOCOL 09/24/20 13:05 Cancel Magnesium Hydroxide (Milk Of Magnesia) 30 ml DAILYPRN PRN PO CONSTIPATION 09/24/20 06:40 09/26/20 11:29 Multivitamins (Theragram-M) 1 tab DAILY PO 09/24/20 09:00 09/30/20 08:02 Olanzapine (ZyPREXA ZYDIS) 5 mg STAT STAT PO 09/28/20 13:33 09/28/20 13:36 DC 09/28/20 13:44 Psyllium Hydrophilic Mucilloid (Metamucil) 1 pkt QHS PO 09/24/20 21:35 09/29/20 12:46 DC 09/28/20 20:52 Psyllium Hydrophilic Mucilloid (Metamucil) 2 pkt DAILYPRN PRN PO CONSTIPATION 09/29/20 12:45 09/29/20 20:38 Risperidone (RisperDAL) 1 mg QHS PO 09/25/20 21:00 09/28/20 13:31 DC 09/27/20 21:25 Risperidone (RisperDAL) 3 mg QAM PO 10/01/20 09:00 Risperidone (RisperDAL) 3 mg QHS PO 09/28/20 21:00 09/29/20 20:38 Thiamine HCl (Thiamine HCl) 100 mg BID PO 09/24/20 09:00 09/27/20 08:59 DC 09/26/20 21:06 Trazodone HCl (Desyrel) 25 mg QHSP PRN PO INSOMNIA 09/29/20 12:45 09/29/20 20:38 Trazodone HCl (Desyrel) 50 mg QHSP PRN PO INSOMNIA 09/24/20 06:40 09/29/20 12:46 DC 09/28/20 20:51 Allergies Coded Allergies: No Known Allergies (Unverified , 09/24/20) DIEGO NARVAEZ NP Sep 30, 2020 13:43
[2020-09-30 17:46] VITALS: BP 142/88
[2020-09-30] MEDS: LORazepam 1 MG TAB PO PRN (18:19)
[2020-09-30] MEDS: risperiDONE 3 MG TAB PO SCH (20:21)
[2020-09-30] MEDS: traZODone 25MG PER 1/2 TABLET PO PRN (20:21)
[2020-09-30] MEDS: METAMUCIL (PSYLLIUM) PACKET PO PRN (20:21)
[2020-10-01 06:45] VITALS: BP 153/72
[2020-10-01] MEDS: LACTOBACILLUS ACIDOPHILUS CAP (BACID) PO SCH ×2 (08:32→17:37)
[2020-10-01] MEDS: MULTIVITAMINS/MINERALS THERAP 1 TAB PO SCH (08:32)
[2020-10-01] MEDS: LORazepam 1 MG TAB PO PRN ×2 (08:32→16:34)
[2020-10-01] MEDS: FOLIC ACID 1 MG TAB PO SCH (08:32)
[2020-10-01] MEDS: FLUoxetine 20 MG CAP PO SCH (08:32)
[2020-10-01] MEDS: risperiDONE 3 MG TAB PO SCH ×2 (08:33→20:10)
[2020-10-01] MEDS: hydrOXYzine 50 MG TAB PO PRN ×2 (12:30→20:10)
--- NOTE | 2020-10-01 15:56 | MHIPNPDOC ---
[facility] Progress Note Progress Note DATE OF SERVICE: 10/01/20 HISTORY: Patient is a 39 -year-old Single, Unemployed, Undomiciled, male, who had lacerated his left arm in a suicide attempt. . Currently his arm is bandaged. He reports unknown amount of sutures of his left arm. States he cut himself vertically yesterday about 7 PM. Patient has a long history of an undiagnosed digestive tract problem. He's had many colonoscopies, states he is not diagnosed with Crohn's or irritable bowel syndrome. His gastrointestinal doctor says, to not be stressed but this causes more stress. He reports that he is has 16 years of this issue where he has flareups in. He has an unusual odor, reports other symptoms of both diarrhea, constipation and abdominal pain. This problem alienates him from friends and family. Reports poor supports and passive aggressive behaviors from his family and friends. Patient has a history of diverticulitis and polyps PER ED REPORT: Pt was transferred to [facility] ED from [facility] following a suicide attempt. Pt was medically cleared at [facility] & transferred to [facility] for a MHE. Pt states that he cut his wrist with a knife as a suicide attempt. Pt states that he has a "digestive tract problems" that has been ongoing for about 16 years, but he is not sure what his dx is. He states that his PCP just tells him to not worry so much. Pt states that this digestive tract issue makes him smell, so he is "alienated from everyone" because he smells bad. Pt denies any Hx of suicide attempts or self- harm. He denies HI. Pt denies both AH & VH. He does not appear to be psychotic. Pt c/o depressed mood, anxiety, poor concentration, decreased energy levels, & poor sleep. Pt denies any Hx of mental health problems. He denies any Hx of admissions. He does not have OP [place]. Pt reports that he drinks a 12- pack of beer every other day. He reports daily MJ use, but has not used in about a week because he does not have access to it. His tox screen was positive for cannabis. Pt states that he was living alone in [place], [place] until about a week ago when he came to the area to live in the [facility]. Pt states that he was having a hard time functioning in the [facility]. He states that he has family in the area but he does not want them to know that he is here because "they are passive-aggressive about my illness." Pt provides only minimal answers to questions & is guarded. VITAL SIGNS: See below. NEW TEST RESULTS: see below CURRENT MEDICATIONS: See below. MENTAL STATUS EXAMINATION: Patient is a 39 -year-old Single, Unemployed, Undomiciled, male, who had lacerated his left arm in a suicide attempt. Currently his arm is bandaged. He reports unknown amount of sutures of his left arm. Speech: Is not spontaneous, needs prompting, normal tone and volume Language skills are intact Thought processes including: linear and goal oriented Thought content: Denies SI/HI,reports decreased depression and increased anxiety. No current paranoid thoughts, but states he is always worried Abstract reasoning, and computation: fair Description of associations: denies, none observed Description of abnormal or psychotic thoughts: denies, observed to be mildly grandiose Judgment: fair Insight: fair Orientation: alert and oriented to person, place, time and situation Recent and remote memory: good Attention span and concentration: good Language: adequate Fund of knowledge: average Mood: "I am doing good today." Reports decreased depression and chronic high anxiety Affect: Euthymic DIAGNOSES: Major Depressive Single Episode, Severe Status Post Suicide Attempt by Laceration Generalized Anxiety Disorder Rule out Bipolar I Disorder Alcohol Use Disorder Cannabis Use Disorder ASSESSMENT: Patient states he has referral for housing meeting on Monday. He is hopeful that his cousin will be able to give him a job. He states that prior to residing here in 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 He is mildly grandiose in today's session, stating that he is happy that another peer is leaving. This peer is someone that the patient ruminated about and was paranoid about him. He appears less paranoid, anxious and nervous but patient states that he has high anxiety everyday and reports that he chronically worries. MANAGEMENT PLAN: Continue current treatment plan, discharge Monday, patient has a [facility]PO[facility] referral for [facility] TIME SPENT: 25 minutes. Vital Signs Vital Signs Date Time Temp Pulse Resp B/P (MAP) Pulse Ox O2 Delivery O2 Flow Rate FiO2 10/01/20 06:45 98.6 60 20 153/72 (99) 98 Room Air Current Medications Current Medications Medications (Trade) Dose Ordered Sig/Brett Route PRN Reason Start Time Stop Time Status Last Admin Dose Admin Acetaminophen (Tylenol Tab) 650 mg Q6HP PRN PO HEADACHE or DISCOMFORT 09/24/20 06:40 Al Hydrox/Mg Hydrox/Simethicone (Mylanta) 30 ml Q4HP PRN PO HEARTBURN/INDIGESTION 09/24/20 06:40 Fluoxetine HCl (PROzac) 20 mg DAILY PO 09/24/20 09:00 09/28/20 13:31 DC 09/28/20 08:34 Fluoxetine HCl (PROzac) 20 mg QAM PO 10/01/20 09:00 10/01/20 08:32 Fluoxetine HCl (PROzac) 20 mg QHS PO 09/29/20 21:00 09/30/20 12:27 DC 09/29/20 20:38 Folic Acid (Folic Acid) 1 mg DAILY PO 09/24/20 09:00 10/01/20 08:32 Home Med (Med Rec Complete!) ASDIRECTED XX 09/24/20 06:05 09/24/20 06:15 DC Hydroxyzine HCl (Atarax) 50 mg Q6HP PRN PO anxiety/agitation 09/24/20 17:50 09/28/20 13:36 DC 09/28/20 08:34 Hydroxyzine HCl (Atarax) 100 mg Q6HP PRN PO ANXIETY 09/29/20 12:45 10/01/20 12:30 Lactobacillus Acidophilus (Bacid) 1 ea BIDWM PO 09/25/20 18:00 10/01/20 08:32 Lorazepam (Ativan) 1 mg Q8HP PRN PO ANXIETY 09/30/20 12:25 10/01/20 08:32 Lorazepam (Ativan) 1 mg STAT STAT PO 09/30/20 09:32 09/30/20 09:34 DC 09/30/20 09:56 Lorazepam (Ativan) 1 mg TIDP PRN PO ANXIETY 09/26/20 11:15 09/28/20 13:36 DC 09/27/20 17:35 Lorazepam (Ativan) 2 mg ASDIRECTED PRN PO SEE PROTOCOL 09/24/20 13:05 Cancel Magnesium Hydroxide (Milk Of Magnesia) 30 ml DAILYPRN PRN PO CONSTIPATION 09/24/20 06:40 09/26/20 11:29 Multivitamins (Theragram-M) 1 tab DAILY PO 09/24/20 09:00 10/01/20 08:32 Olanzapine (ZyPREXA ZYDIS) 5 mg STAT STAT PO 09/28/20 13:33 09/28/20 13:36 DC 09/28/20 13:44 Psyllium Hydrophilic Mucilloid (Metamucil) 1 pkt QHS PO 09/24/20 21:35 09/29/20 12:46 DC 09/28/20 20:52 Psyllium Hydrophilic Mucilloid (Metamucil) 2 pkt DAILYPRN PRN PO CONSTIPATION 09/29/20 12:45 09/30/20 20:21 Risperidone (RisperDAL) 1 mg QHS PO 09/25/20 21:00 09/28/20 13:31 DC 09/27/20 21:25 Risperidone (RisperDAL) 3 mg QAM PO 10/01/20 09:00 10/01/20 08:33 Risperidone (RisperDAL) 3 mg QHS PO 09/28/20 21:00 09/30/20 20:21 Thiamine HCl (Thiamine HCl) 100 mg BID PO 09/24/20 09:00 09/27/20 08:59 DC 09/26/20 21:06 Trazodone HCl (Desyrel) 25 mg QHSP PRN PO INSOMNIA 09/29/20 12:45 09/30/20 20:21 Trazodone HCl (Desyrel) 50 mg QHSP PRN PO INSOMNIA 09/24/20 06:40 09/29/20 12:46 DC 09/28/20 20:51 Allergies Coded Allergies: No Known Allergies (Unverified , 09/24/20) DIEGO NARVAEZ LINING FOLDER Oct 01, 2020 15:56
[2020-10-01 18:47] VITALS: BP 130/60
[2020-10-01] MEDS: METAMUCIL (PSYLLIUM) PACKET PO PRN (20:10)
[2020-10-01] MEDS: traZODone 25MG PER 1/2 TABLET PO PRN (20:10)
[2020-10-01] MEDS: MOM 30ML SUSPENSION UDC PO PRN (21:25)
[2020-10-02 07:12] VITALS: BP 143/73
[2020-10-02] MEDS: FOLIC ACID 1 MG TAB PO SCH (08:19)
[2020-10-02] MEDS: FLUoxetine 20 MG CAP PO SCH (08:19)
[2020-10-02] MEDS: risperiDONE 3 MG TAB PO SCH ×2 (08:19→20:27)
[2020-10-02] MEDS: MULTIVITAMINS/MINERALS THERAP 1 TAB PO SCH (08:19)
[2020-10-02] MEDS: LORazepam 1 MG TAB PO PRN ×2 (08:21→20:27)
[2020-10-02] MEDS: LACTOBACILLUS ACIDOPHILUS CAP (BACID) PO SCH ×2 (08:21→17:16)
--- NOTE | 2020-10-02 13:09 | MHIPNPDOC ---
[facility] Progress Note Progress Note DATE OF SERVICE: 10/02/20 HISTORY: Patient is a 39 -year-old Single, Unemployed, Undomiciled, male, who had lacerated his left arm in a suicide attempt. . Currently his arm is bandaged. He reports unknown amount of sutures of his left arm. States he cut himself vertically yesterday about 7 PM. Patient has a long history of an undiagnosed digestive tract problem. He's had many colonoscopies, states he is not diagnosed with Crohn's or irritable bowel syndrome. His gastrointestinal doctor says, to not be stressed but this causes more stress. He reports that he is has 16 years of this issue where he has flareups in. He has an unusual odor, reports other symptoms of both diarrhea, constipation and abdominal pain. This problem alienates him from friends and family. Reports poor supports and passive aggressive behaviors from his family and friends. Patient has a history of diverticulitis and polyps PER ED REPORT: Pt was transferred to [facility] ED from [facility] following a suicide attempt. Pt was medically cleared at [facility] & transferred to [facility] for a MHE. Pt states that he cut his wrist with a knife as a suicide attempt. Pt states that he has a "digestive tract problems" that has been ongoing for about 16 years, but he is not sure what his dx is. He states that his PCP just tells him to not worry so much. Pt states that this digestive tract issue makes him smell, so he is "alienated from everyone" because he smells bad. Pt denies any Hx of suicide attempts or self- harm. He denies HI. Pt denies both AH & VH. He does not appear to be psychotic. Pt c/o depressed mood, anxiety, poor concentration, decreased energy levels, & poor sleep. Pt denies any Hx of mental health problems. He denies any Hx of admissions. He does not have OP [place]. Pt reports that he drinks a 12- pack of beer every other day. He reports daily MJ use, but has not used in about a week because he does not have access to it. His tox screen was positive for cannabis. Pt states that he was living alone in [place], [place] until about a week ago when he came to the area to live in the [facility]. Pt states that he was having a hard time functioning in the [facility]. He states that he has family in the area but he does not want them to know that he is here because "they are passive-aggressive about my illness." Pt provides only minimal answers to questions & is guarded. VITAL SIGNS: See below. NEW TEST RESULTS: see below CURRENT MEDICATIONS: See below. MENTAL STATUS EXAMINATION: Patient is a 39 -year-old Single, Unemployed, Undomiciled, male, who had lacerated his left arm in a suicide attempt. Currently his arm is bandaged. He reports unknown amount of sutures of his left arm. Speech: Is not spontaneous, needs prompting, normal tone and volume Language skills are intact Thought processes including: linear and goal oriented Thought content: Denies SI/HI,reports decreased depression and increased anxiety. No current paranoid thoughts, but states he is always worried Abstract reasoning, and computation: fair Description of associations: denies, none observed Description of abnormal or psychotic thoughts: denies, observed to be mildly grandiose Judgment: fair Insight: fair Orientation: alert and oriented to person, place, time and situation Recent and remote memory: good Attention span and concentration: good Language: adequate Fund of knowledge: average Mood: "I am doing good today." Reports decreased depression and chronic high anxiety Affect: Euthymic DIAGNOSES: Major Depressive Single Episode, Severe Status Post Suicide Attempt by Laceration Generalized Anxiety Disorder Rule out Bipolar I Disorder Alcohol Use Disorder Cannabis Use Disorder ASSESSMENT: Patient is stating that he continues to have high anxiety but that the Ativan is not working for longer than 2 hours. He is requesting Alprazolam. This request is denied. 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 He has trialed Hydrozyzine, Zyprexa and Ativan. I educated him on Gabapentin and Buspar. He refused the Gabapentin stating that he only wants a medication that is strictly for anxiety. Patient is agreeable to Buspar 5 mg TID. He stated, "I am glad that "peer" is gone. He was so passive aggressive to me." He states that this peer would talk about him and then when he was near the patient he would stop talking. Patient is visible on the unit, denies depression or suicidal ideations. MANAGEMENT PLAN: Continue current treatment plan, discharge Monday, patient has a SPOA referral for [facility] TIME SPENT: 25 minutes. Vital Signs Vital Signs Date Time Temp Pulse Resp B/P (MAP) Pulse Ox O2 Delivery O2 Flow Rate FiO2 10/02/20 07:12 98.4 93 18 143/73 (96) 98 Room Air Current Medications Current Medications Medications (Trade) Dose Ordered Sig/Brett Route PRN Reason Start Time Stop Time Status Last Admin Dose Admin Acetaminophen (Tylenol Tab) 650 mg Q6HP PRN PO HEADACHE or DISCOMFORT 09/24/20 06:40 Al Hydrox/Mg Hydrox/Simethicone (Mylanta) 30 ml Q4HP PRN PO HEARTBURN/INDIGESTION 09/24/20 06:40 Fluoxetine HCl (PROzac) 20 mg DAILY PO 09/24/20 09:00 09/28/20 13:31 DC 09/28/20 08:34 Fluoxetine HCl (PROzac) 20 mg QAM PO 10/01/20 09:00 10/02/20 08:19 Fluoxetine HCl (PROzac) 20 mg QHS PO 09/29/20 21:00 09/30/20 12:27 DC 09/29/20 20:38 Folic Acid (Folic Acid) 1 mg DAILY PO 09/24/20 09:00 10/02/20 08:19 Home Med (Med Rec Complete!) ASDIRECTED XX 09/24/20 06:05 09/24/20 06:15 DC Hydroxyzine HCl (Atarax) 50 mg Q6HP PRN PO anxiety/agitation 09/24/20 17:50 09/28/20 13:36 DC 09/28/20 08:34 Hydroxyzine HCl (Atarax) 100 mg Q6HP PRN PO ANXIETY 09/29/20 12:45 10/01/20 20:10 Lactobacillus Acidophilus (Bacid) 1 ea BIDWM PO 09/25/20 18:00 10/02/20 08:21 Lorazepam (Ativan) 1 mg Q8HP PRN PO ANXIETY 09/30/20 12:25 10/02/20 08:21 Lorazepam (Ativan) 1 mg STAT STAT PO 09/30/20 09:32 09/30/20 09:34 DC 09/30/20 09:56 Lorazepam (Ativan) 1 mg TIDP PRN PO ANXIETY 09/26/20 11:15 09/28/20 13:36 DC 09/27/20 17:35 Lorazepam (Ativan) 2 mg ASDIRECTED PRN PO SEE PROTOCOL 09/24/20 13:05 Cancel Magnesium Hydroxide (Milk Of Magnesia) 30 ml DAILYPRN PRN PO CONSTIPATION 09/24/20 06:40 10/01/20 21:25 Multivitamins (Theragram-M) 1 tab DAILY PO 09/24/20 09:00 10/02/20 08:19 Olanzapine (ZyPREXA ZYDIS) 5 mg STAT STAT PO 09/28/20 13:33 09/28/20 13:36 DC 09/28/20 13:44 Psyllium Hydrophilic Mucilloid (Metamucil) 1 pkt QHS PO 09/24/20 21:35 09/29/20 12:46 DC 09/28/20 20:52 Psyllium Hydrophilic Mucilloid (Metamucil) 2 pkt DAILYPRN PRN PO CONSTIPATION 09/29/20 12:45 10/01/20 20:10 Risperidone (RisperDAL) 1 mg QHS PO 09/25/20 21:00 09/28/20 13:31 DC 09/27/20 21:25 Risperidone (RisperDAL) 3 mg QAM PO 10/01/20 09:00 10/02/20 08:19 Risperidone (RisperDAL) 3 mg QHS PO 09/28/20 21:00 10/01/20 20:10 Thiamine HCl (Thiamine HCl) 100 mg BID PO 09/24/20 09:00 09/27/20 08:59 DC 09/26/20 21:06 Trazodone HCl (Desyrel) 25 mg QHSP PRN PO INSOMNIA 09/29/20 12:45 10/01/20 20:10 Trazodone HCl (Desyrel) 50 mg QHSP PRN PO INSOMNIA 09/24/20 06:40 09/29/20 12:46 DC 09/28/20 20:51 Allergies Coded Allergies: No Known Allergies (Unverified , 09/24/20) DIEGO NARVAEZ NP Oct 02, 2020 10:45
[2020-10-02] MEDS: busPIRone 5 MG TAB PO SCH ×2 (16:24→20:27)
[2020-10-02 17:36] VITALS: BP 145/87
[2020-10-02] MEDS: traZODone 25MG PER 1/2 TABLET PO PRN (20:27)
[2020-10-02] MEDS: METAMUCIL (PSYLLIUM) PACKET PO PRN (20:28)
[2020-10-03] MEDS: LORazepam 1 MG TAB PO PRN ×2 (05:33→14:26)
[2020-10-03 06:41] VITALS: BP 134/76
[2020-10-03] MEDS: busPIRone 5 MG TAB PO SCH ×3 (08:05→20:04)
[2020-10-03] MEDS: FOLIC ACID 1 MG TAB PO SCH (08:05)
[2020-10-03] MEDS: LACTOBACILLUS ACIDOPHILUS CAP (BACID) PO SCH ×2 (08:05→17:32)
[2020-10-03] MEDS: MULTIVITAMINS/MINERALS THERAP 1 TAB PO SCH (08:05)
[2020-10-03] MEDS: FLUoxetine 20 MG CAP PO SCH (08:06)
[2020-10-03] MEDS: risperiDONE 3 MG TAB PO SCH ×2 (08:06→20:04)
[2020-10-03 18:00] VITALS: BP 156/79
--- NOTE | 2020-10-03 18:53 | IPNPDOC ---
Text Note Date of Service The patient was seen on 10/03/20. NOTE Hospitalist Progress Note Subjective: I was notified that it has been 10 days since the stitches in his left forearm were placed, and that it is time to have them removed. He does not have any other medical complaints at this time. Objective: General: Awake, alert, oriented 3. Not in any acute distress. HEENT: Head normocephalic, atraumatic, sclera are nonicteric. Hearing is grossly intact to conversation. Extremities: 2+ pulses in the radial bilaterally. No evidence of clubbing or cyanosis. Left forearm lacerations are healing nicely, no surrounding erythema or edema. It appears that he has approximately 23 stitches across 2 different lacerations. Assessment: Left forearm laceration with presence of many interrupted sutures Plan: Sutures were removed. No blood loss. No dressing is needed at this time. Continue with management of psychiatric issues per psychiatry physician Please call us if there are any other issues, otherwise the hospitalist team will be signing off again. Thanks very much. VS,Fishbone, I+O VS, Fishbone, I+O Vital Signs Date Time Temp Pulse Resp B/P (MAP) Pulse Ox O2 Delivery O2 Flow Rate FiO2 10/03/20 18:00 91.2 103 18 156/79 (104) 100 10/03/20 08:54 Room Air SEGUNDO COMER DO Oct 03, 2020 18:53
[2020-10-03] MEDS: METAMUCIL (PSYLLIUM) PACKET PO PRN (20:04)
[2020-10-03] MEDS: traZODone 25MG PER 1/2 TABLET PO PRN (20:04)
[2020-10-03] MEDS: traZODone 50 MG TAB PO PRN (22:35)
[2020-10-04 07:08] VITALS: BP 141/75
[2020-10-04] MEDS: busPIRone 5 MG TAB PO SCH ×3 (08:03→20:06)
[2020-10-04] MEDS: FLUoxetine 20 MG CAP PO SCH (08:03)
[2020-10-04] MEDS: risperiDONE 3 MG TAB PO SCH ×2 (08:03→20:06)
[2020-10-04] MEDS: MULTIVITAMINS/MINERALS THERAP 1 TAB PO SCH (08:05)
[2020-10-04] MEDS: FOLIC ACID 1 MG TAB PO SCH (08:05)
[2020-10-04] MEDS: LACTOBACILLUS ACIDOPHILUS CAP (BACID) PO SCH ×2 (08:05→17:01)
[2020-10-04] MEDS: LORazepam 1 MG TAB PO PRN ×2 (08:05→16:12)
[2020-10-04 18:18] VITALS: BP 148/82
[2020-10-04] MEDS: traZODone 50 MG TAB PO PRN (20:06)
[2020-10-04] MEDS: METAMUCIL (PSYLLIUM) PACKET PO PRN (20:06)
[2020-10-05] MEDS: MOM 30ML SUSPENSION UDC PO PRN (03:32)
[2020-10-05] MEDS: LORazepam 1 MG TAB PO PRN (05:02)
[2020-10-05 06:27] VITALS: BP 137/80
[2020-10-05] MEDS: LACTOBACILLUS ACIDOPHILUS CAP (BACID) PO SCH (08:56)
[2020-10-05] MEDS: MULTIVITAMINS/MINERALS THERAP 1 TAB PO SCH (09:08)
[2020-10-05] MEDS: busPIRone 5 MG TAB PO SCH (09:08)
[2020-10-05] MEDS: FLUoxetine 20 MG CAP PO SCH (09:08)
[2020-10-05] MEDS: risperiDONE 3 MG TAB PO SCH (09:08)
[2020-10-05] MEDS: FOLIC ACID 1 MG TAB PO SCH (09:09)
[2020-10-05] MEDS ORDERED: FLUO20CA22 PO (09:25)
[2020-10-05] MEDS ORDERED: RISP-10 PO (09:25)
[2020-10-05] MEDS ORDERED: BUSP5TA PO (09:25)
--- NOTE | 2020-10-05 09:40 | MHDSPDOC ---
[facility] Discharge Summary Discharge Summary DATE OF ADMISSION: Sep 24, 2020 at 06:40 DATE OF DISCHARGE: October 05, 2020 at 0927 DISCHARGE DIAGNOSES: Major Depressive Single Episode, Severe Status Post Suicide Attempt by Laceration Generalized Anxiety Disorder Rule out Bipolar I Disorder Alcohol Use Disorder Cannabis Use Disorder REASON FOR ADMISSION: Patient is a 39 -year-old Single, Unemployed, Undomiciled, male, who had lacerated his left arm in a suicide attempt. . Currently his arm is bandaged. He reports unknown amount of sutures of his left arm. States he cut himself vertically yesterday about 7 PM. Patient has a long history of an undiagnosed digestive tract problem. He's had many colonoscopies, states he is not diagnosed with Crohn's or irritable bowel syndrome. His gastrointestinal doctor says, to not be stressed but this causes more stress. He reports that he is has 16 years of this issue where he has flareups in. He has an unusual odor, reports other symptoms of both diarrhea, constipation and abdominal pain. This problem alienates him from friends and family. Reports poor supports and passive aggressive behaviors from his family and friends. Patient has a history of diverticulitis and polyps PER ED REPORT: Pt was transferred to [facility] ED from [facility] following a suicide attempt. Pt was medically cleared at [facility] & transferred to [facility] for a MHE. Pt states that he cut his wrist with a knife as a suicide attempt. Pt states that he has a "digestive tract problems" that has been ongoing for about 16 years, but he is not sure what his dx is. He states that his PCP just tells him to not worry so much. Pt states that this digestive tract issue makes him smell, so he is "alienated from everyone" because he smells bad. Pt denies any Hx of suicide attempts or self- harm. He denies HI. Pt denies both AH & VH. He does not appear to be psychotic. Pt c/o depressed mood, anxiety, poor concentration, decreased energy levels, & poor sleep. Pt denies any Hx of mental health problems. He denies any Hx of admissions. He does not have OP [place]. Pt reports that he drinks a 12- pack of beer every other day. He reports daily MJ use, but has not used in about a week because he does not have access to it. His tox screen was positive for cannabis. Pt states that he was living alone in [place], [place] until about a week ago when he came to the area to live in the [facility]. Pt states that he was having a hard time functioning in the [facility]. He states that he has family in the area but he does not want them to know that he is here because "they are passive-aggressive about my illness." Pt provides only minimal answers to questions & is guarded. CONSULTANTS INVOLVED: See Medical H + P by Hospitalist TREATMENT AND PROGRESS ON THE UNIT: Patient was admitted to the [facility] on a legal status he was afforded the following treatment modalities: 1) Individual Therapy 2) Group Therapy 3) Medication Management 4) Milieu Therapy 5) Safe Environment HOSPITAL COURSE: Patient was admitted to [facility] on a legal status. He was started on Prozac for his reported depression and Buspar for Anxiety and Risperidone for his reports of Paranoia. He had reported several incidences where he believed that people were talking about him. Patient had this paranoia throughout his hospitalization and states that he had never improved. He spent a good majority of time wanting to make changes to his medication regimen, especially Benzodi azepines. Patient was initially started on Ativan, he reported that this wasn't working. It was discontinued and he refused Hydroxyzine. He then requested Ativan to return to his reconciliation but at every 6 hours. This request was denied. He made frequent use of the Ativan with no real indication that his anxiety was severe, but stated "I don't like Ativan - it makes me feel foggy." He also requested Alprazolam on numerous occasions but stated that he had never been prescribed this but knew that he was effective for him. Considering that he patient has recently moved to [place] from [place], does not have an outpatient provider who already prescribes this I felt that this was not in patient's best interest. He understood that no prescriptions of Benzodiazepines would be given to him at discharge. Per staff, patient reported that he wanted to be discharged "so I can get out to smoke some weed." Patient is not requesting Rehab, does not want any medications for ETOH or Drug Treatment. DISCHARGE ASSESSMENT: In today's interview, patient is alert and oriented, pts dress is appropriate. Hygiene and grooming is well-kempt. Smiles on approach and is pleasant and engaged in the interview. Denies depression and anxiety. Denies suicidal and homicidal ideation, planning or intent. Denies and is not observed with wild, psychotic symptoms of delusions, bizarre thinking, obs essions, paranoia, ruminations illogical thoughts, flight of ideas or having poor insight and judgement. Patient has normal mentation, declines further hospitalization on a voluntary status and meets criteria for discharge today. Patient encouraged to return to hospital if symptoms worsen or change and encouraged to call unit if he/she/they needs to speak to provider for questions regarding medications or care. MENTAL STATUS EXAMINATION ON DISCHARGE: charo is a 39 -year-old Single, Unemployed, Undomiciled, male, who had lacerated his left arm in a suicide attempt. Speech: Is fluid, conversant, normal rate, tone and volume Language skills are intact Thought processes including: linear and goal oriented Thought content: denies depression and anxiety. Denies suicidal/homicidal ideation, planning or intent. Abstract reasoning, and computation: fair Description of associations: denies, none observed Description of abnormal or psychotic thoughts: denies, none observed. Judgment: fair Insight: fair Orientation: alert and oriented to person, place, time and situation Recent and remote memory: intact Attention span and concentration: good Language: expansive Fund of knowledge: average Mood: Euthymic Mood Affect: reactive MEDICATIONS ON DISCHARGE: See Medication Reconciliation PLAN/FOLLOWUP ARRANGEMENTS: Patient is following up with [facility] The amount of time spent in the coordination of care for this patient was approximately 25 minutes. ETOH/Disorder Med Rx ETOH/DRUG DISORDER RX: Offrd @ d/c & pt refused Vital Signs/I&Os Vital Signs Date Time Temp Pulse Resp B/P (MAP) Pulse Ox O2 Delivery O2 Flow Rate FiO2 10/05/20 06:27 97.1 87 16 137/80 (99) 98 Room Air Medications Scheduled Buspirone HCl (Buspirone HCl) 5 Mg Tablet, 5 MG PO TID for Anxiety, #21 Fluoxetine Hcl (Fluoxetine HCl) 20 Mg Capsule, 20 MG PO QAM for Depression/Anxiety, #7 Psyllium Husk (with Sugar) (Metamucil Powder) 575 Gm Powder, 3 TBS PO QHS, (Reported) Risperidone (Risperidone) 3 Mg Tablet, 3 MG PO BID for Antipsychotic, #14 Allergies Coded Allergies: No Known Allergies (Unverified , 09/24/20) DIEGO NARVAEZ NP Oct 05, 2020 09:40
== END 2020-10-05 11:26 | disposition home or self-care (01) | DRG 751 ==
LOC: M ED 05:23 → M ED INP 06:40 → M PSY 08:15
PROVIDERS: ADMIT Psychiatry & Neurology Psychiatry; ATTEND Psychiatry & Neurology Psychiatry
DX: F32.2 Major depressive disorder, single episode, severe without psychotic features (principal); F10.10 Alcohol abuse, uncomplicated; F12.10 Cannabis abuse, uncomplicated; Z91.5 Personal history of self-harm; K58.0 Irritable bowel syndrome with diarrhea; Z86.010 Personal history of colon polyps; S51.812D Laceration without foreign body of left forearm, subsequent encounter; X78.9XXD Intentional self-harm by unspecified sharp object, subsequent encounter; Y92.9 Unspecified place or not applicable